=== PATIENT | male | born 1965 | race Two or more races ===

== ENCOUNTER 2020-07-26 18:39 | Emergency (ER) | payer OTHER ==
[2020-07-26 19:27] VITALS: BP 132/87; PULSE 78; TEMP 98.9; BMI 35.4
[2020-07-26] MEDS ORDERED: LIDOCAINE 5% TOPICAL PATCH TP ONE (20:11)
[2020-07-26] MEDS ORDERED: IBUPROFEN 600 MG TABLET (FP) PO ONE ×2 (20:12→20:44)
[2020-07-26] MEDS ORDERED: METHOCARBAMOL 500 MG TABLET PO ONE (20:12)
[2020-07-26] MEDS ORDERED: METHOCARBAMOL 500 MG TABLET ONE (20:44)
[2020-07-26] MEDS ORDERED: LIDOCAINE 5% TOPICAL PATCH ONE (20:44)
[2020-07-26 20:56] LABS: URINE APPEARANCE CLEAR; URINE BILIRUBIN NEGATIVE (NEGATIVE); URINE COLOR YELLOW; URINE GLUCOSE (UA) NEGATIVE (NEGATIVE); URINE KETONE NEGATIVE (NEGATIVE); URINE LEUK ESTERASE NEGATIVE (NEGATIVE); URINE NITRITE NEGATIVE (NEGATIVE); URINE PROTEIN NEGATIVE (NEGATIVE)
[2020-07-26] MEDS ORDERED: LIDOCAINE PATCH REMOVAL MC SCH (22:00)
== END 2020-07-26 21:15 | disposition home or self-care (01) ==
LOC: JER 18:39
DX: M62.838 Other muscle spasm (principal); M54.9 Dorsalgia, unspecified
CPT/HCPCS: 74176-TC; 81003; 99284-25

== ENCOUNTER 2020-07-28 07:39 | Emergency (ER) | payer OTHER ==
[2020-07-28 08:17] VITALS: TEMP 98.7; BMI 35.4
[2020-07-28] MEDS ORDERED: diazePAM 5 MG TABLET PO ONE (08:34)
[2020-07-28] MEDS ORDERED: ACETAMINOPHEN 325 MG TABLET (FP) PO ONE (08:34)
[2020-07-28] MEDS ORDERED: ACETAMINOPHEN 325 MG TABLET (FP) ONE (08:39)
[2020-07-28] MEDS ORDERED: LIDOCAINE 5% TOPICAL PATCH TP ONE (08:39)
[2020-07-28] MEDS ORDERED: diazePAM 5 MG TABLET ONE (08:39)
[2020-07-28] MEDS ORDERED: LIDOCAINE 5% TOPICAL PATCH ONE (09:07)
[2020-07-28 09:12] LABS: BASO % 0.4 % (0-2.0); EOS % 1.5 % (0-4.5); HEMATOCRIT 43.1 % (35.4-49); HEMOGLOBIN 14.8 GM/dL (11.7-16.9); LYMPH % 19.5 % (8-40); MCH 28.3 pg (25.7-33.7); MCHC 34.4 g/dl (32.0-35.9); MEAN CELL VOLUME 82.3 fl (80-96); MEAN PLT VOLUME 9.2 fl (7.5-11.1); MONO % 6.7 % (3.8-10.2); NEUT % 71.9 % (42.8-82.8); PLATELET COUNT 195 K/MM3 (134-434); RBC 5.24 M/mm3 (4.00-5.60); WHITE BLOOD COUNT 8.9 K/mm3 (4.0-10.0)
[2020-07-28 09:33] LABS: URINE APPEARANCE CLEAR; URINE BILIRUBIN NEGATIVE (NEGATIVE); URINE COLOR YELLOW; URINE GLUCOSE (UA) NEGATIVE (NEGATIVE); URINE KETONE NEGATIVE (NEGATIVE); URINE LEUK ESTERASE NEGATIVE (NEGATIVE); URINE NITRITE NEGATIVE (NEGATIVE); URINE PROTEIN NEGATIVE (NEGATIVE); URINE UROBILINOGEN 0.2 mg/dL (0.2-1.0)
[2020-07-28 09:34] LABS: ALBUMIN 3.5 g/dl (3.4-5.0); BLOOD UREA NITROGEN 12.9 mg/dL (7-18); CALCIUM 8.8 mg/dL (8.5-10.1)
[2020-07-28 09:38] LABS: CREATININE 0.9 mg/dL (0.55-1.3)
[2020-07-28 09:39] LABS: BILIRUBIN,TOTAL 0.3 mg/dL (0.2-1); TOT PROT 6.8 g/dl (6.4-8.2)
[2020-07-28] MEDS ORDERED: KETOROLAC TROMETHAMINE 30 MG/1 ML VIAL IM ONE (09:47)
[2020-07-28] MEDS ORDERED: KETOROLAC TROMETHAMINE 15 MG/ML VIAL IVPUSH ONE (10:02)
[2020-07-28] MEDS ORDERED: KETOROLAC TROMETHAMINE 15 MG/ML VIAL ONE (10:02)
[2020-07-28 10:47] VITALS: BP 138/84; PULSE 78
[2020-07-28] MEDS ORDERED: LIDOCAINE PATCH REMOVAL MC ONE (22:00)
== END 2020-07-28 10:40 | disposition home or self-care (01) ==
LOC: JER 07:39
PROC: 3E0233Z Introduction of Anti-inflammatory into Muscle, Percutaneous Approach (ICD-10-PCS; principal; 2020-07-28)
PROC: 3E0333Z Introduction of Anti-inflammatory into Peripheral Vein, Percutaneous Approach (ICD-10-PCS; 2020-07-28)
DX: S39.012A Strain of muscle, fascia and tendon of lower back, initial encounter (principal)
CPT/HCPCS: 36415; 72100-TC-FY; 80053; 81003; 85025; 99284-25

== ENCOUNTER 2022-05-26 11:28 | Emergency (ER) | payer OTHER ==
[2022-05-26 11:44] VITALS: BP 157/79; PULSE 107; RESP 20; TEMP 97.8; BMI 35.4
[2022-05-26] MEDS ORDERED: LIDOCAINE 5% TOPICAL PATCH TP ONE (12:33)
[2022-05-26] MEDS ORDERED: ACETAMINOPHEN 325 MG TABLET (FP) PO ONE (12:33)
[2022-05-26] MEDS ORDERED: LIDOCAINE 5% TOPICAL PATCH ONE (12:35)
[2022-05-26] MEDS ORDERED: ACETAMINOPHEN 325 MG TABLET (FP) ONE (12:35)
[2022-05-26 13:09] LABS: URINE APPEARANCE CLEAR; URINE BILIRUBIN NEGATIVE (NEGATIVE); URINE COLOR YELLOW; URINE GLUCOSE (UA) NEGATIVE (NEGATIVE); URINE KETONE TRACE (NEGATIVE); URINE LEUK ESTERASE NEGATIVE (NEGATIVE); URINE NITRITE NEGATIVE (NEGATIVE); URINE PROTEIN NEGATIVE (NEGATIVE)
[2022-05-26] MEDS ORDERED: LIDOCAINE PATCH REMOVAL MC ONE (22:00)
== END 2022-05-26 14:01 | disposition home or self-care (01) ==
LOC: JERFT 11:28
DX: S39.012A Strain of muscle, fascia and tendon of lower back, initial encounter (principal); X50.9XXA Other and unspecified overexertion or strenuous movements or postures, initial encounter
CPT/HCPCS: 81003; 99283-25

== ENCOUNTER 2022-10-26 15:08 | Emergency (ER) | payer OTHER ==
[2022-10-26 15:24] VITALS: BP 136/77; PULSE 92; RESP 18; TEMP 98.3; BMI 35.4
[2022-10-26] MEDS ORDERED: KETOROLAC TROMETHAMINE 30 MG/1 ML VIAL IM ONE (16:28)
[2022-10-26] MEDS ORDERED: LIDOCAINE 5% TOPICAL PATCH TP ONE (16:28)
[2022-10-26] MEDS ORDERED: LIDOCAINE 5% TOPICAL PATCH ONE ×2 (16:30→16:57)
[2022-10-26] MEDS ORDERED: KETOROLAC TROMETHAMINE 60 MG/2 ML VIAL ONE (16:30)
[2022-10-26] MEDS ORDERED: ACETAMINOPHEN 500 MG TABLET (FP) PO ONE (16:37)
[2022-10-26] MEDS ORDERED: ACETAMINOPHEN 500 MG TABLET (FP) ONE (16:57)
== END 2022-10-26 17:42 | disposition home or self-care (01) ==
LOC: JER 15:08 → JERFT 15:08
PROC: 3E0233Z Introduction of Anti-inflammatory into Muscle, Percutaneous Approach (ICD-10-PCS; principal; 2022-10-26)
DX: S46.912A Strain of unspecified muscle, fascia and tendon at shoulder and upper arm level, left arm, initial encounter (principal); M54.50 Low back pain, unspecified; X50.9XXA Other and unspecified overexertion or strenuous movements or postures, initial encounter
CPT/HCPCS: 72100-TC-FY; 73030-TC-LT-FY; 99284-25

== ENCOUNTER 2023-06-07 14:39 | Emergency (ER) | payer OTHER ==
[2023-06-07 14:51] VITALS: BP 151/85; PULSE 83; RESP 18; TEMP 98; BMI 32.5
[2023-06-07] MEDS ORDERED: predniSONE 20 MG TABLET (UD) ONE (16:19)
[2023-06-07] MEDS ORDERED: LIDOCAINE 4% PATCH TP ONE (16:19)
[2023-06-07] MEDS ORDERED: KETOROLAC TROMETHAMINE 30 MG/1 ML VIAL ONE (16:34)
[2023-06-07] MEDS: LIDOCAINE 5% TOPICAL PATCH TP ONE (16:40)
[2023-06-07] MEDS: KETOROLAC TROMETHAMINE 30 MG/1 ML VIAL IM ONE (16:41)
[2023-06-07] MEDS: predniSONE 20 MG TABLET (UD) PO ONE (16:41)
[2023-06-07] MEDS ORDERED: LIDOCAINE PATCH REMOVAL MC SCH (22:00)
== END 2023-06-07 17:20 | disposition home or self-care (01) ==
LOC: JERFT 14:39
PROC: 3E0233Z Introduction of Anti-inflammatory into Muscle, Percutaneous Approach (ICD-10-PCS; principal; 2023-06-07)
DX: M54.41 Lumbago with sciatica, right side (principal)
CPT/HCPCS: 99284-25

== ENCOUNTER 2024-08-29 10:24 | Emergency (ER) | payer OTHER ==
[2024-08-29 10:39] VITALS: BP 121/73; PULSE 71; RESP 20; TEMP 98.8; BMI 35.4
[2024-08-29] MEDS ORDERED: ACETAMINOPHEN 500 MG TABLET (FP) ONE (11:10)
[2024-08-29] MEDS: ACETAMINOPHEN 500 MG TABLET (FP) PO ONE (11:12)
== END 2024-08-29 13:21 | disposition home or self-care (01) ==
LOC: JERFT 10:24
DX: M48.07 Spinal stenosis, lumbosacral region (principal); M54.50 Low back pain, unspecified
CPT/HCPCS: 72131-TC; 99284-25